=== PATIENT | male | born 1980 | race Caucasian/White ===

== ENCOUNTER 2021-11-03 08:36 | Emergency (ER) | payer BC, SELFPAY ==
[~2021-11-03] VITALS: Ht 170.2 cm; Wt 113.4 kg
[2021-11-03 08:36] VITALS: BP_SYST 166
--- NOTE | 2021-11-03 08:36 | NUR ---
BROUGHT BACK TO BED #7 AND TRIAGED. REPORT GIVEN TO AMARIS
--- NOTE | 2021-11-03 08:40 | NUR ---
DR STARKEY CALLED TO PTS BEDSIDE FOR EVALUATION
--- NOTE | 2021-11-03 08:47 | NUR ---
pt. bib girlfriend with c/o feeling "like was going to pass out", had some blurry vision, and mild DONNELLY to front of head states its is not painful just there
[2021-11-03] MEDS ORDERED: LORazepam 1 MG TABLET PO ONE (09:15)
--- NOTE | 2021-11-03 09:22 | NUR ---
MEDICATED WITH ATIVAN PO FOR ANXIETY
--- NOTE | 2021-11-03 10:15 | NUR ---
pt. states feels more relaxed after ativan but still has mild DONNELLY and blurry vision
[2021-11-03 10:16] LABS: BASOPHILS % (AUTO) 0.7 % (0.0-2.0); EOSINOPHILS # (AUTO) 0.1 K/uL (0.0-0.4); EOSINOPHILS % (AUTO) 2.6 % (0.0-4.0); HEMATOCRIT 45.7 % (36-54); HEMOGLOBIN 15.3 g/dL (14.0-18.0); LYMPHOCYTES # (AUTO) 1.5 K/uL (1.0-5.5); LYMPHOCYTES % (AUTO) 31.8 % (20.5-51.5); MEAN CORPUSCULAR HEMOGLOBIN 29 pg (27-31); MEAN CORPUSCULAR HGB CONC 34 % (32-36); MEAN CORPUSCULAR VOLUME 87 fL (79.0-98.0); MONOCYTES # (AUTO) 0.3 K/uL (0.0-1.0); MONOCYTES % (AUTO) 6.6 % (1.7-9.3); NEUTROPHILS # (AUTO) 2.8 K/uL (1.8-7.7); NEUTROPHILS % (AUTO) 58.3 % (40.0-70.0); PLATELET COUNT (AUTO) 208 K/uL (130-430); RED BLOOD CELL COUNT(AUTO) 5.27 MIL/uL (4.2-6.2); RED CELL DISTRIBUTION WIDTH 13.5 % (9.0-15.0); WHITE BLOOD COUNT (AUTO) 4.7 K/uL (4.8-10.8)
[2021-11-03 10:33] LABS: CALCIUM 8.8 mg/dL (8.4-11.0); CREATININE 0.86 mg/dL (0.55-1.30); POTASSIUM 3.9 mmol/L (3.5-5.1)
[2021-11-03 10:40] LABS: TOTAL BILIRUBIN 0.5 mg/dL (0.0-1.0)
[2021-11-03 12:00] VITALS: BP_SYST 151
--- NOTE | 2021-11-03 12:00 | NUR ---
Patient given written and verbal discharge instructions and verbalizes understanding. ER Dr. Boss discussed with patient the results and treatment provided. Patient in stable condition. Patient educated on pain management and to follow up with PMD. Pain Scale 0. Opportunity for questions provided and answered.
== END 2021-11-03 12:00 | disposition home or self-care (01) ==
LOC: SED 08:36
DX: R55 Syncope and collapse (principal); B34.9 Viral infection, unspecified; I10 Essential (primary) hypertension; Z20.822 Contact with and (suspected) exposure to COVID-19
CPT/HCPCS: 36415; 70450; 76376; 80053; 82962; 85025; 93005; 99285; U0003; C9803

== ENCOUNTER 2022-02-06 17:56 | Emergency (ER) | payer BC ==
[~2022-02-06] VITALS: Ht 170.2 cm; Wt 113.4 kg
[2022-02-06 18:01] VITALS: BP_SYST 166
[2022-02-06 18:46] LABS: ANION GAP 8 (5-15); CALCIUM 10.1 mg/dL (8.4-11.0); CHLORIDE 106 mmol/L (98-107); GFR AFRICAN AMERICAN 106 mL/min (>90); GLUCOSE 119 mg/dL (70-99); POTASSIUM 3.2 mmol/L (3.5-5.1); SODIUM SERUM 142 mmol/L (136-145); UREA NITROGEN, BLOOD 16 mg/dL (8-21)
[2022-02-06 18:50] LABS: BASOPHILS # (AUTO) 0.1 K/uL (0.0-0.2); BASOPHILS % (AUTO) 1.9 % (0.0-2.0); EOSINOPHILS # (AUTO) 0.3 K/uL (0.0-0.4); EOSINOPHILS % (AUTO) 4.9 % (0.0-4.0); HEMATOCRIT 44.7 % (36-54); HEMOGLOBIN 15.4 g/dL (14.0-18.0); LYMPHOCYTES # (AUTO) 2.1 K/uL (1.0-5.5); MEAN CORPUSCULAR HEMOGLOBIN 30 pg (27-31); MEAN CORPUSCULAR HGB CONC 35 % (32-36); MEAN CORPUSCULAR VOLUME 86 fL (79.0-98.0); MONOCYTES # (AUTO) 0.3 K/uL (0.0-1.0); MONOCYTES % (AUTO) 6.3 % (1.7-9.3); NEUTROPHILS # (AUTO) 2.4 K/uL (1.8-7.7); NEUTROPHILS % (AUTO) 45.9 % (40.0-70.0); PLATELET COUNT (AUTO) 219 K/uL (130-430); RED CELL DISTRIBUTION WIDTH 13.7 % (9.0-15.0); WHITE BLOOD COUNT (AUTO) 5.2 K/uL (4.8-10.8)
[2022-02-06 18:54] LABS: ALANINE AMINOTRANSFERASE 33 U/L (12-78); ALBUMIN 4.3 g/dL (3.4-4.8); ASPARTATE AMINOTRANSFERASE 20 U/L (10-37); LIPASE 208 U/L (73-393); TOTAL BILIRUBIN 0.3 mg/dL (0.0-1.0)
[2022-02-06] MEDS ORDERED: POTASSIUM CHLORIDE 20 MEQ TAB.PRT.SR PO ONE (20:30)
--- NOTE | 2022-02-06 20:31 | NUR ---
Pt C/O chest pain with bilateral lower extremity weakness AOX4 VSS Able to make needs kmgiovanna Mcnamarall continue to monitor
--- NOTE | 2022-02-06 20:32 | NUR ---
MARIELLE Love at bedside examining patient.
[2022-02-06 22:31] VITALS: BP_SYST 136
--- NOTE | 2022-02-06 22:39 | NUR ---
Pt DC per MD's order DC instructions and medications given to pt Pt verbalized understandings VSS Able to make needs known pt exited ED in stable gait
== END 2022-02-06 22:29 | disposition home or self-care (01) ==
LOC: SED 17:56
DX: R07.89 Other chest pain (principal); E87.6 Hypokalemia; F41.9 Anxiety disorder, unspecified; I10 Essential (primary) hypertension
CPT/HCPCS: 36415; 71045; 80053; 83690; 84484; 85025; 85379; 93005; 99285